=== PATIENT | male | born 1965 | race African-American/Black ===

== ENCOUNTER 2020-02-15 12:04 | Emergency (ER) | payer MEDICAID ==
[~2020-02-15] VITALS: Ht 170.2 cm; Wt 86.2 kg
[2020-02-15 12:24] VITALS: BP 146/90
== END 2020-02-15 13:05 | disposition home or self-care (01) ==
LOC: ER 12:04
DX: L60.0 Ingrowing nail (principal); E11.9 Type 2 diabetes mellitus without complications; I10 Essential (primary) hypertension